=== PATIENT | male | born 1940 | race Caucasian/White ===

== ENCOUNTER 2020-10-26 08:54 | Emergency (ER) | payer OTHER ==
[~2020-10-26] VITALS: Ht 167.6 cm; Wt 69.0 kg
[2020-10-26] MEDS ORDERED: TRAMADOL 50 MG50 MG PO ×2 (11:50→12:26)
[2020-10-26 12:00] VITALS: BP 140/77
== END 2020-10-26 12:35 | disposition home or self-care (01) ==
LOC: ER 08:54
DX: M25.50 Pain in unspecified joint (principal); M25.511 Pain in right shoulder; M25.512 Pain in left shoulder; M54.9 Dorsalgia, unspecified; I10 Essential (primary) hypertension; J44.9 Chronic obstructive pulmonary disease, unspecified; Z90.49 Acquired absence of other specified parts of digestive tract